=== PATIENT | male | born 1940 | race Caucasian/White ===

== ENCOUNTER 2025-03-04 09:50 | Outpatient (REF) | payer MEDICARE, SELFPAY ==
--- NOTE | ~2025-03-04 | XR_ITS ---
EXAMINATION: XR ELBOW, LEFT CLINICAL INFORMATION: LEFT ARM PAIN COMPARISON: None available. TECHNIQUE: AP, lateral, and oblique views of the left elbow. FINDINGS: No acute cortical disruption or malalignment. No lytic or blastic lesions. No joint effusion. No subcutaneous emphysema. No metallic or radiopaque foreign body. XR/XR elbow LT 2V IMPRESSION: No acute fracture or dislocation. Negative x-ray. Electronically signed by: Damion Beckford MD 03/04/2025 10:51 AM EDT
--- NOTE | ~2025-03-04 | XR_ITS ---
EXAMINATION: XR SHOULDER, LEFT CLINICAL INFORMATION: PAIN COMPARISON: None available. TECHNIQUE: AP external rotation, Grashey, scapular Y, and axillary views of the left shoulder. FINDINGS: No acute cortical disruption or malalignment. 2 mm calcification at the supraspinatus tendon insertion. Sclerosis and the articular surface of the greater tuberosity of the humerus and the glenoid of the scapula. XR/XR shoulder LT min 2V IMPRESSION: Mild degenerative changes. Tendinosis versus calcific tendinopathy, supraspinatus. Electronically signed by: Damion Beckford MD 03/04/2025 10:50 AM EDT
== END 2025-03-04 09:51 | disposition home or self-care (01) ==
LOC: HO.XRAY 09:50
PROVIDERS: PCP Internal Medicine; Visit Provider Registered Nurse
DX: M79.602 Pain in left arm (principal)
CPT/HCPCS: 73030; 73070

== ENCOUNTER → 2025-03-04 10:02 | Outpatient (BNV) | payer MEDICARE, SELFPAY | PROVIDERS: PCP Internal Medicine; Visit Provider Radiology Diagnostic Radiology | DX: M25.512 Pain in left shoulder (principal); M79.602 Pain in left arm | CPT/HCPCS: 73030; 73070 ==